=== PATIENT | male | born 1980 | race Caucasian/White ===

== ENCOUNTER 2016-12-26 21:49 | Emergency (ER) | payer OTHER ==
[2016-12-26] MEDS ORDERED: Lidocaine 1% with EPINEPHrine 1:100,000 20 ML MDV INJECT ONE (21:54)
[2016-12-26] MEDS ORDERED: Bacitracin Oint 1 GM U/D Packet TOP ONE (22:16)
[2016-12-26] MEDS ORDERED: Diphtheria,Pertussis(Acell),Tetanus Vaccine 0.5 ML Syringe IM ONE (22:16)
--- NOTE | 2016-12-26 22:20 | EDM.PDOC ---
ED HPI GENERAL MEDICAL PROBLEM - General Chief Complaint: Laceration Stated Complaint: LACERATION ABOVE LT EYE Time Seen by Provider: 12/26/16 22:07 - History of Present Illness INITIAL COMMENTS - FREE TEXT/NARRATIVE: HISTORY AND PHYSICAL: History of present illness: Patient 36-year-old male presents with a laceration to his left face that occurred when he turned into a cabinet Review of systems: As per history of present illness and below otherwise all systems reviewed and negative. Past medical history: As per history of present illness and as reviewed below otherwise noncontributory. Surgical history: As per history of present illness and as reviewed below otherwise noncontributory. Social history: No reported history of drug or alcohol abuse. Family history: As per history of present illness and as reviewed below otherwise noncontributory. Physical exam: HEENT: Patient has approximately 2 cm moderate depth laceration above his left eyebrow, normocephalic, pupils reactive, negative for conjunctival pallor or scleral icterus, mucous membranes moist, throat clear, neck supple, nontender, trachea midline. Lungs: Clear to auscultation, breath sounds equal bilaterally, chest nontender. Heart: S1S2, regular, negative for clicks, rubs, or JVD. Abdomen: Soft, nondistended, nontender. Negative for masses or hepatosplenomegaly. Negative for costovertebral tenderness. Pelvis: Stable nontender. Genitourinary: Deferred. Rectal: Deferred. Extremities: Atraumatic, negative for cords or calf pain. Neurovascular unremarkable. Neuro: Awake, alert, oriented. Cranial nerves II through XII unremarkable. Cerebellum unremarkable. Motor and sensory unremarkable throughout. Exam nonfocal. Diagnostics: None Therapeutics: 0.5 DT patient was prepped and draped in sterile manner a size 1% lidocaine without epinephrine closed with 5-0 absorbable suture Impression: #1 left facial laceration Definitive disposition and diagnosis as appropriate pending reevaluation and review of above. left eyebrow Pain Score (Numeric/FACES): 8 - Related Data Allergies Allergy/AdvReac Type Severity Reaction Status Date / Time No Known Allergies Allergy Verified 12/26/16 22:00 Past Medical History Cardiovascular History: Reports: None Respiratory History: Reports: None Gastrointestinal History: Reports: None Genitourinary History: Reports: None Musculoskeletal History: Reports: Other (See Below) Other Musculoskeletal History: neck pain Neurological History: Reports: None Psychiatric History: Reports: None Endocrine/Metabolic History: Reports: None Hematologic History: Reports: None Immunologic History: Reports: None Oncologic (Cancer) History: Reports: None Dermatologic History: Reports: None - Infectious Disease History Infectious Disease History: Reports: None - Past Surgical History Musculoskeletal Surgical History: Reports: None Social & Family History - Family History Family Medical History: Noncontributory - Tobacco Use Smoking Status *Q: Current Every Day Smoker Years of Tobacco use: 15 Packs/Tins Daily: 0.5 - Caffeine Use Caffeine Use: Reports: Energy Drinks - Recreational Drug Use Recreational Drug Use: No ED ROS GENERAL - Review of Systems Review Of Systems: ROS reveals no pertinent complaints other than HPI. ED EXAM, SKIN/RASH Exam: See Below (See dictation) Course - Vital Signs Last Recorded V/S: Last Vital Signs Temp 36.2 C 12/26/16 22:01 Pulse 81 12/26/16 22:01 Resp 18 12/26/16 22:01 BP 156/103 H 12/26/16 22:01 Pulse Ox 98 12/26/16 22:01 - Orders/Labs/Meds Orders: Active Orders 24 hr Category Date Time Status Vaccines to be Administered [RC] PER UNIT ROUTINE Care 12/26/16 22:16 Active Bacitracin [Bacitracin Oint 1 GM] Med 12/26/16 22:16 Once 1 dose TOP ONETIME ONE Diphth,Pertuss(Acell),Tet Vac [Adacel] Med 12/26/16 22:16 Once 0.5 ml IM .ONCE ONE Medication Orders Bacitracin (Bacitracin Oint 1 Gm) 1 dose TOP ONETIME ONE Stop: 12/26/16 22:17 Diphtheria/Tetanus/Acell Pertussis (Adacel) 0.5 ml IM .ONCE ONE Stop: 12/26/16 22:17 Meds: Medications Generic Name Dose Route Start Last Admin Trade Name Freq PRN Reason Stop Dose Admin Bacitracin 1 dose 12/26/16 22:16 Bacitracin Oint 1 Gm TOP 12/26/16 22:17 ONETIME ONE Diphtheria/Tetanus/Acell Pertussis 0.5 ml 12/26/16 22:16 Adacel IM 12/26/16 22:17 .ONCE ONE Discontinued Medications Generic Name Dose Route Start Last Admin Trade Name Freq PRN Reason Stop Dose Admin Lidocaine/Epinephrine 20 ml 12/26/16 21:54 12/26/16 22:02 Xylocaine 1% With Epinephrine 1:100,000 INJECT 12/26/16 21:55 20 ml ONETIME ONE Administration Departure - Departure Time of Disposition: 22:19 Disposition: Home, Self-Care 01 Condition: Good Clinical Impression: Facial laceration - Discharge Information Referrals: PCP,None [Primary Care Provider] - Additional Instructions: The following information is given to patients seen in the emergency department who are being discharged to home. This information is to outline your options for follow-up care. We provide all patients seen in our emergency department with a follow-up referral. The need for follow-up, as well as the timing and circumstances, are variable depending upon the specifics of your emergency department visit. If you don't have a primary care physician on staff, we will provide you with a referral. We always advise you to contact your personal physician following an emergency department visit to inform them of the circumstance of the visit and for follow-up with them and/or the need for any referrals to a consulting specialist. The emergency department will also refer you to a specialist when appropriate. This referral assures that you have the opportunity for followup care with a specialist. All of these measure are taken in an effort to provide you with optimal care, which includes your followup. Under all circumstances we always encourage you to contact your private physician who remains a resource for coordinating your care. When calling for followup care, please make the office aware that this follow-up is from your recent emergency room visit. If for any reason you are refused follow-up, please contact the [facility] emergency department at and asked to speak to the emergency department charge nurse. Follow-up primary medical doctor 1-2 days return as needed as discussed - My Orders Last 24 Hours: My Active Orders 12/26/16 22:16 Vaccines to be Administered [RC] PER UNIT ROUTINE Bacitracin [Bacitracin Oint 1 GM] 1 dose TOP ONETIME ONE Diphth,Pertuss(Acell),Tet Vac [Adacel] 0.5 ml IM .ONCE ONE - Assessment/Plan Last 24 Hours: My Active Orders 12/26/16 22:16 Vaccines to be Administered [RC] PER UNIT ROUTINE Bacitracin [Bacitracin Oint 1 GM] 1 dose TOP ONETIME ONE Diphth,Pertuss(Acell),Tet Vac [Adacel] 0.5 ml IM .ONCE ONE
== END 2016-12-26 22:25 | disposition home or self-care (01) ==
LOC: MW.ED 21:49
DX: S01.81XA Laceration without foreign body of other part of head, initial encounter (principal); F17.210 Nicotine dependence, cigarettes, uncomplicated; W22.8XXA Striking against or struck by other objects, initial encounter
CPT/HCPCS: 12011; 90471; 90715; 99282-25; 99283

== ENCOUNTER 2017-05-23 20:18 | Emergency (ER) | payer OTHER ==
[2017-05-23] MEDS ORDERED: Sodium Chloride 0.9% 1,000 ML IV ONE (21:07)
[2017-05-23] MEDS ORDERED: Metoclopramide 10 MG/2 ML SDV IV ONE (21:07)
[2017-05-23] MEDS ORDERED: Ketorolac 30 MG/ML SDV IVPUSH ONE (21:07)
[2017-05-23] MEDS ORDERED: Ondansetron 4 MG/2 ML SDV IVPUSH ONE (21:07)
[2017-05-23] MEDS ORDERED: diphenhydrAMINE 50 MG/ML SDV IVPUSH ONE (21:07)
--- NOTE | 2017-05-23 21:10 | EDM.PDOC ---
<Jamie Rodriguez E - Last Filed: 05/23/17 22:54> ED HPI GENERAL MEDICAL PROBLEM - General Chief Complaint: General Stated Complaint: NAUSEA TOOTH PAIN Time Seen by Provider: 05/23/17 21:01 Source of Information: Reports: Patient History Limitations: Reports: No Limitations - History of Present Illness INITIAL COMMENTS - FREE TEXT/NARRATIVE: HISTORY AND PHYSICAL: History of present illness: Patient is a 37-year-old male who presents to the emergency room with multiple complaints. He states he has had right upper dental pain 3 months. Today he started to have a migraine headache (starting around 5pm) with light/noise sensitivity and nausea. States when he moves around he feels lightheaded and dizzy. Believes he may have had some fevers, although did not check his temperature. He denies any chest pain, shortness of breath, abdominal pain, vomiting, diarrhea or constipation. He denies any recent head injury or trauma. Review of systems: As per history of present illness and below otherwise all systems reviewed and negative. Past medical history: As per history of present illness and as reviewed below otherwise noncontributory. Surgical history: As per history of present illness and as reviewed below otherwise noncontributory. Social history: No reported history of drug or alcohol abuse. Family history: As per history of present illness and as reviewed below otherwise noncontributory. Physical exam: Gen.: Well-developed and well-nourished 37-year-old male. Alert and oriented. Nontoxic appearing and in no acute distress. HEENT: Atraumatic, normocephalic, pupils reactive, negative for conjunctival pallor or scleral icterus, mucous membranes moist, throat clear, neck supple, nontender, trachea midline. Mild erythema noted to the right upper dental posterior molar area. Minimal tenderness to Tenderness to palpation of the gumline. No drooling or trismus. No meningeal sign. Lungs: Clear to auscultation, breath sounds equal bilaterally, chest nontender. Heart: S1S2, regular rate and rhythm without overt murmur Abdomen: Soft, nondistended, nontender. Negative for masses or hepatosplenomegaly. Negative for costovertebral tenderness. Pelvis: Stable nontender. Genitourinary: Deferred. Rectal: Deferred. Extremities: Atraumatic, negative for cords or calf pain. Neurovascular unremarkable. Neuro: Awake, alert, oriented. Cranial nerves II through XII unremarkable. Cerebellum unremarkable. Motor and sensory unremarkable throughout. Exam nonfocal. Due to patient's multiple complaints I will do a CBC and CMP and give the patient some IV fluids with medication for his migraine. WBC is 18, Rocephin given while here in the ED. CT head being done to assess for mastoiditis. Will treat the dental complaint/sinus headache with Augmentin. Zofran as needed for nausea. Patient requesting something for pain, Tramadol for pain managment. Diagnostics: CBC, CMP, CT head Therapeutics: IV fluid, Zofran, Toradol, Reglan, Benadryl, Rocephin Impression: Sinusitis Dental Decay Plan: 1. Take your medications as directed. 2. Follow-up with your primary caregiver in the next 1-2 days. Return to the ED as needed and as discussed. Definitive disposition and diagnosis as appropriate pending reevaluation and review of above. Duration: Week(s): Location: Reports: Head left side face Pain Score (Numeric/FACES): 10 - Related Data Allergies Allergy/AdvReac Type Severity Reaction Status Date / Time No Known Allergies Allergy Verified 05/23/17 20:49 Home Meds: Home Meds PARoxetine [Paxil] 20 mg PO DAILY 05/23/17 [History] Past Medical History HEENT History: Reports: None Cardiovascular History: Reports: None Respiratory History: Reports: None Gastrointestinal History: Reports: None Genitourinary History: Reports: None Musculoskeletal History: Reports: Other (See Below) Other Musculoskeletal History: neck pain, previous neck surgery Neurological History: Reports: None Psychiatric History: Reports: None Endocrine/Metabolic History: Reports: None Hematologic History: Reports: None Immunologic History: Reports: None Oncologic (Cancer) History: Reports: None Dermatologic History: Reports: None - Infectious Disease History Infectious Disease History: Reports: Chicken Pox - Past Surgical History Musculoskeletal Surgical History: Reports: None Social & Family History - Family History Family Medical History: Noncontributory - Tobacco Use Smoking Status *Q: Current Every Day Smoker Years of Tobacco use: 18 Packs/Tins Daily: 1 - Caffeine Use Caffeine Use: Reports: Energy Drinks - Recreational Drug Use Recreational Drug Use: No ED ROS GENERAL - Review of Systems Review Of Systems: ROS reveals no pertinent complaints other than HPI. ED EXAM, GENERAL - Physical Exam Exam: See Below (see Dictation) Course - Vital Signs Last Recorded V/S: Last Vital Signs Temp 99.5 F 05/23/17 20:50 Pulse 98 05/23/17 20:50 Resp 18 05/23/17 20:50 BP 127/71 05/23/17 20:50 Pulse Ox 99 05/23/17 20:50 Orthostatic Blood Pressure [ 129/72 Standing] Orthostatic Blood Pressure [ 130/67 Sitting] Orthostatic Blood Pressure [ 134/68 Supine] - Orders/Labs/Meds Orders: Active Orders 24 hr Category Date Time Status Orthostatic Vital Signs [RC] ASDIRECTED Care 05/23/17 22:18 Active Head wo Cont [CT] Stat Exams 05/23/17 22:41 Taken Labs: Laboratory Tests 05/23/17 05/23/17 Range/Units 21:35 21:35 WBC 18.17 H (4.0-11.0) K/uL RBC 5.03 (4.50-5.90) M/uL Hgb 17.1 H (13.0-17.0) g/dL Hct 47.8 (38.0-50.0) % MCV 95.0 (80.0-98.0) fL MCH 34.0 H (27.0-32.0) pg MCHC 35.8 (31.0-37.0) g/dL RDW Std Deviation 45.7 (28.0-62.0) fl RDW Coeff of Laura 13 (11.0-15.0) % Plt Count 261 (150-400) K/uL MPV 11.20 (7.40-12.00) fL Neut % (Auto) 87.9 H (48.0-80.0) % Lymph % (Auto) 5.6 L (16.0-40.0) % Bullitt % (Auto) 5.8 (0.0-15.0) % Eos % (Auto) 0.6 (0.0-7.0) % Baso % (Auto) 0.1 (0.0-1.5) % Neut # (Auto) 16.0 H (1.4-5.7) K/uL Lymph # (Auto) 1.0 (0.6-2.4) K/uL Bullitt # (Auto) 1.1 H (0.0-0.8) K/uL Eos # (Auto) 0.1 (0.0-0.7) K/uL Baso # (Auto) 0.0 (0.0-0.1) K/uL Nucleated RBC % 0.0 /100WBC Nucleated RBCs # 0 K/uL Sodium 138 (136-148) mmol/L Potassium 3.8 (3.5-5.1) mmol/L Chloride 102 (98-107) mmol/L Carbon Dioxide 23.5 (21.0-32.0) mmol/L BUN 11 (7.0-18.0) mg/dL Creatinine 1.1 (0.8-1.3) mg/dL Est Cr Clr Drug Dosing 112.88 mL/min Estimated GFR (MDRD) > 60.0 ml/min Glucose 107 H (74-106) mg/dL Calcium 8.9 (8.5-10.1) mg/dL Total Bilirubin 0.7 (0.2-1.0) mg/dL AST 16 (15-37) IU/L ALT 31 (14-63) IU/L Alkaline Phosphatase 70 (46-116) U/L Total Protein 7.1 (6.4-8.2) g/dL Albumin 4.2 (3.4-5.0) g/dL Globulin 2.9 (2.0-3.5) g/dL Albumin/Globulin Ratio 1.4 (1.3-2.8) Meds: Medications Discontinued Medications Generic Name Dose Route Start Last Admin Trade Name Freq PRN Reason Stop Dose Admin Diphenhydramine HCl 50 mg 05/23/17 21:07 05/23/17 21:42 Benadryl IVPUSH 05/23/17 21:08 50 mg ONETIME ONE Administration Sodium Chloride 1,000 mls @ 999 mls/hr 05/23/17 21:07 05/23/17 21:35 Normal Saline IV 05/23/17 22:07 999 mls/hr STAT ONE Administration Ceftriaxone Sodium/Dextrose 1 50 mls @ 100 mls/hr 05/23/17 22:14 05/23/17 22: 28 gm/ Premix IV 05/23/17 22:43 100 mls/hr ONETIME ONE Administration Ketorolac Tromethamine 30 mg 05/23/17 21:07 05/23/17 21:40 Toradol IVPUSH 05/23/17 21:08 30 mg ONETIME ONE Administration Metoclopramide HCl 10 mg 05/23/17 21:07 05/23/17 21:37 Reglan IV 05/23/17 21:08 10 mg ONETIME ONE Administration Ondansetron HCl 4 mg 05/23/17 21:07 05/23/17 21:35 Zofran IVPUSH 05/23/17 21:08 4 mg ONETIME ONE Administration Departure - Departure Disposition: Home, Self-Care 01 Clinical Impression: Dental decay Sinusitis Qualifiers: Sinusitis location: maxillary Chronicity: acute Recurrence: non-recurrent Qualified Code(s): J01.00 - Acute maxillary sinusitis, unspecified - Discharge Information Instructions: Sinusitis, Adult, [id number], Sinus Headache, [id number] Referrals: Caitlin Ewing, [employer] [Primary Care Provider] - Forms: ED Department Discharge Additional Instructions: My general discharge The following information is given to patients seen in the emergency department who are being discharged to home. This information is to outline your options for follow-up care. We provide all patients seen in our emergency department with a follow-up referral. The need for follow-up, as well as the timing and circumstances, are variable depending upon the specifics of your emergency department visit. If you don't have a primary care physician on staff, we will provide you with a referral. We always advise you to contact your personal physician following an emergency department visit to inform them of the circumstance of the visit and for follow-up with them and/or the need for any referrals to a consulting specialist. The emergency department will also refer you to a specialist when appropriate. This referral assures that you have the opportunity for follow-up care with a specialist. All of these measure are taken in an effort to provide you with optimal care, which includes your follow-up. Under all circumstances we always encourage you to contact your private physician who remains a resource for coordinating your care. When calling for follow-up care, please make the office aware that this follow-up is from your recent emergency room visit. If for any reason you are refused follow-up, please contact the [facility] Emergency Department at and asked to speak to the emergency department charge nurse. GUERA [facility] [address] [place] [id number] 1. Take your medications as directed. 2. Follow-up with your primary caregiver in the next 1-2 days. Return to the ED as needed and as discussed. <Nahun Hester - Last Filed: 05/24/17 00:32> ED HPI GENERAL MEDICAL PROBLEM - History of Present Illness INITIAL COMMENTS - FREE TEXT/NARRATIVE: This is Dr. Hester. I was informed of the patient's clinical status and all lab findings. I examined the patient and agree with above. Did take over the patient at approximately 2300. CT the head showed no acute intercranial processes. 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 No findings suggestive of mastoiditis. I informed patient of findings and patient was discharged in good condition with a prescription for Augmentin 875, tramadol 50 mg #12, and Zofran. He was instructed to follow-up with his primary care provider as well as return to the emergency department if he had any new or worsening symptoms. ED ROS GENERAL - Review of Systems Review Of Systems: See Below ED EXAM, GENERAL - Physical Exam Exam: See Below Departure - Departure Time of Disposition: 00:32
[2017-05-23] MEDS ORDERED: cefTRIAXone 1 GM in Premix Bag 1 BAG IV ONE (22:14)
[2017-05-23 22:20] LABS: CHLORIDE,CL 102 mmol/L (98-107); SODIUM,NA 138 mmol/L (136-148)
--- NOTE | 2017-05-24 10:55 | CT ---
EXAM DATE: 05/23/17 PATIENT'S AGE: 37 Patient: CARLOS ENRIQUE HUTCHISON Facility: [place], [place] Site . Site : [id number] Study: CT Head [id number]/[id number] 11:32:04 PM Ordering Physician: Doctor Ontiveros Final Report: INDICATION: N/V, fever, dizziness, weakness TECHNIQUE: CT Head without contrast. COMPARISON: None. FINDINGS: There is no sign of intracranial hemorrhage or mass effect. The richter-white differentiation is preserved. 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 No acute disease of the visualized paranasal sinuses and mastoid air cells. No fracture evident. No scalp hematoma/laceration. IMPRESSION: No acute intracranial process. 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 Dictated by: Galen Cano MD @ 05/24/2017 00:17:50 (Electronic Signature) Report Signed by Proxy. [facility]
== END 2017-05-24 00:30 | disposition home or self-care (01) ==
LOC: MW.ED 20:18
DX: K02.9 Dental caries, unspecified (principal); J01.00 Acute maxillary sinusitis, unspecified; F17.210 Nicotine dependence, cigarettes, uncomplicated; Z79.899 Other long term (current) drug therapy
CPT/HCPCS: 36415; 70450; 80053; 85025; 96361; 96365; 96375; 99284; J0696; J1200; J1885; J2405; J2765; J7040; 99283

== ENCOUNTER 2021-09-25 08:39 | Emergency (ER) | payer OTHER | END 2021-09-25 10:05 | disposition home or self-care (01) | LOC: MW.ED 08:39 | DX: S89.91XA Unspecified injury of right lower leg, initial encounter (principal); W22.09XA Striking against other stationary object, initial encounter | CPT/HCPCS: 73562-26-RT; 73562-RT; 99282; 99283 ==

== ENCOUNTER 2022-05-03 09:57 | Inpatient (IN) | payer OTHER, BC ==
[2022-05-03] MEDS ORDERED: Sodium Chloride 0.9% 2.5 ML Syringe FLUSH PRN (10:28)
[2022-05-03] MEDS ORDERED: Sodium Chloride 0.9% 10 ML Syringe FLUSH PRN (10:28)
[2022-05-03] MEDS ORDERED: Sodium Chloride 0.9% 1,000 ML IV ONE (10:29)
[2022-05-03 11:16] LABS: POTASSIUM,K 3.8 mmol/L (3.5-5.1)
[2022-05-03 11:21] LABS: CORONAVIRUS COVID-19 NAA NEGATIVE (NEGATIVE); INFLUENZA A NAA NEGATIVE (NEGATIVE); INFLUENZA B NAA NEGATIVE (NEGATIVE); RESPIRATORY SYNCYTIAL VIR NAA NEGATIVE (NEGATIVE)
[2022-05-03] MEDS ORDERED: Iopamidol 755 MG/ML 500 ML Multipack Bottle IVPUSH ONE (12:13)
[2022-05-03] MEDS ORDERED: Sodium Chloride 0.9% 2,000 ML IV ONE (12:47)
[2022-05-03] MEDS: cefTRIAXone 2 GM in Premix Bag 1 BAG IV SCH (17:05)
[2022-05-04] MEDS: oxyCODONE 5 MG Tab PO PRN ×4 (00:17→21:33)
[2022-05-04] MEDS: Folic Acid 1 MG Tab PO SCH ×2 (00:17→21:33)
[2022-05-04] MEDS: Thiamine 200 MG/2 ML MDV IVPUSH SCH ×2 (00:17→08:06)
[2022-05-04 06:25] LABS: CARBON DIOXIDE,CO2 25.3 mmol/L (21.0-32.0); POTASSIUM,K 3.8 mmol/L (3.5-5.1)
[2022-05-04] MEDS: LORazepam 2 MG/ML SDV IVPUSH PRN ×3 (08:07→21:43)
[2022-05-04] MEDS ORDERED: Gadobenate Dimeglumine 529 MG/ML 20 ML SDV IVPUSH STA (09:01)
[2022-05-04] MEDS: Furosemide 40 MG Tab PO SCH (10:30)
[2022-05-04] MEDS: Spironolactone 25 MG Tab PO SCH (10:30)
[2022-05-04] MEDS ORDERED: cefTRIAXone 2 GM in Sodium Chloride 0.9% 50 ML IV SCH (15:00)
[2022-05-04] MEDS: cefTRIAXone 2 GM in Premix Bag 1 BAG IV SCH (16:31)
[2022-05-05] MEDS: oxyCODONE 5 MG Tab PO PRN (04:25)
[2022-05-05 06:46] LABS: CARBON DIOXIDE,CO2 24.3 mmol/L (21.0-32.0); POTASSIUM,K 4.6 mmol/L (3.5-5.1)
[2022-05-05] MEDS: Spironolactone 25 MG Tab PO SCH (09:21)
[2022-05-05] MEDS: Furosemide 40 MG Tab PO SCH (09:21)
[2022-05-05] MEDS: Thiamine 200 MG/2 ML MDV IVPUSH SCH (09:21)
== END 2022-05-05 12:05 | disposition home or self-care (01) | DRG 372 ==
LOC: MW.ED 09:57 → MW.MS 17:06
PROVIDERS: ADMIT Internal Medicine; ATTEND Internal Medicine
PROC: 0W9G3ZX Drainage of Peritoneal Cavity, Percutaneous Approach, Diagnostic (ICD-10-PCS; principal; 2022-05-03)
DX: K65.2 Spontaneous bacterial peritonitis (principal); F10.288 Alcohol dependence with other alcohol-induced disorder; E86.0 Dehydration; K70.31 Alcoholic cirrhosis of liver with ascites; F17.210 Nicotine dependence, cigarettes, uncomplicated; F17.200 Nicotine dependence, unspecified, uncomplicated; K72.90 Hepatic failure, unspecified without coma; Z20.822 Contact with and (suspected) exposure to COVID-19; K70.0 Alcoholic fatty liver; Z86.16 Personal history of COVID-19
CPT/HCPCS: 0241U; 36415; 71045; 74177; 74183; 80053; 83605; 83690; 84157; 85025; 85610; 87040; 87070; 87075; 87205; 89050; 96361; 96365; 99285; A9270-GY; A9577; J0696; J2060; J3411; J3490; J7030; Q9967

== ENCOUNTER 2023-03-15 09:00 | Emergency (ER) | payer OTHER, BC ==
[2023-03-15 09:48] LABS: BASOPHILS ABSOLUTE AUTO 0.09 K/uL (0.00-0.20); BASOPHILS PERCENT AUTO 0.6 % (0.0-1.0); EOSINOPHILS PERCENT AUTO 1.4 % (0.0-6.0); HEMATOCRIT 52.1 % (42.0-52.0); HEMOGLOBIN 18.6 g/dL (14.0-18.0); IMMATURE GRAN ABSOLUTE AUTO 0.06 K/uL (0.00-0.05); IMMATURE GRAN PERCENT AUTO 0.4 % (0.0-0.4); LYMPHOCYTES PERCENT AUTO 19.5 % (24.0-44.0); MEAN CORPUSCULAR HEMOGLOBIN 35.2 pg (28.0-32.0); MEAN CORPUSCULAR HGB CONC 35.7 g/dL (32.0-36.0); MEAN CORPUSCULAR VOLUME 98.7 fL (83.0-99.0); MEAN PLATELET VOLUME 10.2 fL (9.4-12.4); MONOCYTES ABSOLUTE AUTO 1.03 K/uL (0.00-0.80); MONOCYTES PERCENT AUTO 7.2 % (0.0-8.0); NEUTROPHILS ABSOLUTE AUTO 10.15 K/uL (1.80-7.70); NEUTROPHILS PERCENT AUTO 70.9 % (41.0-71.0); PLATELET COUNT,PLT 227 K/uL (150-400); RED BLOOD CELL COUNT 5.28 M/uL (4.52-5.90); WHITE BLOOD CELL COUNT,WBC 14.33 K/uL (3.9-11.3)
[2023-03-15 10:14] LABS: A/G RATIO 1.4 (0.9-1.6); ALBUMIN 4.5 g/dL (3.4-5.0); BILIRUBIN TOTAL 1.7 mg/dL (0.2-1.0); CALCIUM 9.6 mg/dL (8.5-10.1); CARBON DIOXIDE,CO2 24.9 mmol/L (21.0-32.0); CREATININE 1.2 mg/dL (0.8-1.3); EST CRCL DRUG DOSING (CG) 88.02 mL/min; POTASSIUM,K 4.4 mmol/L (3.5-5.1); PROTEIN TOTAL,TP 7.7 g/dL (6.4-8.2)
[2023-03-15] MEDS ORDERED: Iopamidol 755 MG/ML 500 ML Multipack Bottle IVPUSH STA (11:44)
== END 2023-03-15 14:40 | disposition home or self-care (01) ==
LOC: MW.ED 09:00
DX: R20.2 Paresthesia of skin (principal); M54.2 Cervicalgia; Z86.16 Personal history of COVID-19
CPT/HCPCS: 36415; 70450; 70460; 72126; 72129; 80053; 85025; 85652; 86140; 93005; 99284; Q9967

== ENCOUNTER 2023-12-12 09:41 | Emergency (ER) | payer OTHER, BC ==
[2023-12-12] MEDS: Sodium Chloride 0.9% 1,000 ML IV ONE (10:29)
[2023-12-12] MEDS: Sodium Chloride 0.9% 10 ML Syringe FLUSH PRN (10:30)
[2023-12-12] MEDS: Sodium Chloride 0.9% 2.5 ML Syringe FLUSH PRN (10:30)
[2023-12-12 10:31] LABS: BASOPHILS ABSOLUTE AUTO 0.07 K/uL (0.00-0.20); BASOPHILS PERCENT AUTO 0.6 % (0.0-1.0); EOSINOPHILS ABSOLUTE AUTO 0.09 K/uL (0.00-0.45); EOSINOPHILS PERCENT AUTO 0.8 % (0.0-6.0); HEMATOCRIT 46.4 % (42.0-52.0); HEMOGLOBIN 16.8 g/dL (14.0-18.0); IMMATURE GRAN ABSOLUTE AUTO 0.05 K/uL (0.00-0.05); IMMATURE GRAN PERCENT AUTO 0.5 % (0.0-0.4); LYMPHOCYTES ABSOLUTE AUTO 1.71 K/uL (1.00-4.80); LYMPHOCYTES PERCENT AUTO 15.8 % (24.0-44.0); MEAN CORPUSCULAR HEMOGLOBIN 37.3 pg (28.0-32.0); MEAN CORPUSCULAR HGB CONC 36.2 g/dL (32.0-36.0); MEAN CORPUSCULAR VOLUME 102.9 fL (83.0-99.0); MEAN PLATELET VOLUME 10.6 fL (9.4-12.4); MONOCYTES ABSOLUTE AUTO 0.92 K/uL (0.00-0.80); MONOCYTES PERCENT AUTO 8.5 % (0.0-8.0); NEUTROPHILS ABSOLUTE AUTO 7.97 K/uL (1.80-7.70); NEUTROPHILS PERCENT AUTO 73.8 % (41.0-71.0); PLATELET COUNT,PLT 191 K/uL (150-400); RED BLOOD CELL COUNT 4.51 M/uL (4.52-5.90); WHITE BLOOD CELL COUNT,WBC 10.81 K/uL (3.9-11.3)
[2023-12-12 11:05] LABS: A/G RATIO 1.3 (0.9-1.6); ALBUMIN 3.3 g/dL (3.4-5.0); BILIRUBIN TOTAL 2.7 mg/dL (0.2-1.0); CALCIUM 8.8 mg/dL (8.5-10.1); CARBON DIOXIDE,CO2 23.7 mmol/L (21.0-32.0); CREATININE 0.8 mg/dL (0.8-1.3); EST CRCL DRUG DOSING (CG) 146.17 mL/min; POTASSIUM,K 3.6 mmol/L (3.5-5.1); PROTEIN TOTAL,TP 5.9 g/dL (6.4-8.2)
[2023-12-12 11:51] LABS: COLOR,URINE ORANGE; GLUCOSE,URINE 100 mg/dL (NEGATIVE); KETONES,URINE >=80 mg/dL (NEGATIVE); LEUKOCYTE ESTERASE,URINE TRACE (NEGATIVE); NITRITE,URINE POSITIVE (NEGATIVE); OCCULT BLOOD,URINE NEGATIVE (NEGATIVE); PH,URINE 7.5 (5.0-8.0); PROTEIN,URINE 30 mg/dL (NEGATIVE); UROBILINOGEN,URINE >=8.0 EU/dL (<2.0)
[2023-12-12 12:32] LABS: BILIRUBIN,URINE MODERATE (NEGATIVE)
[2023-12-12 12:33] LABS: APPEARANCE,URINE HAZY
[2023-12-12 12:35] LABS: EPITHELIAL CELLS,URINE OCCASIONAL (NONE-FEW); RBC,URINE 0-2 (0-2/HPF); WBC,URINE 0-4 (0-5/HPF)
[2023-12-12 12:36] LABS: BACTERIA,URINE 1+ (NEGATIVE); CALCIUM OXALATE CRYSTALS,URINE MODERATE (NEGATIVE); HYALINE CASTS,URINE 0-2 (0-2/LPF); MUCUS,URINE LIGHT (NONE-MOD)
[2023-12-12] MEDS: cefTRIAXone 1 GM in Sodium Chloride 0.9% 50 ML IV ONE (13:14)
[2023-12-12] MEDS: Alum Hydrox/Mag Hydrox/Simeth 15 ML, Metoclopramide 5 MG, Lidocaine 2% 5 ML PO ONE (13:15)
== END 2023-12-12 13:55 | disposition home or self-care (01) ==
LOC: MW.ED 09:41
DX: K29.70 Gastritis, unspecified, without bleeding (principal); N39.0 Urinary tract infection, site not specified; K76.0 Fatty (change of) liver, not elsewhere classified; R18.8 Other ascites; Z86.16 Personal history of COVID-19; Z79.899 Other long term (current) drug therapy; Z75.8 Other problems related to medical facilities and other health care
CPT/HCPCS: 36415; 76705; 80053; 81001; 83690; 85025; 87086; 96361; 96365; 99284; A9270; J0696; J3490; J7030; 99283

== ENCOUNTER 2023-12-24 08:54 | Emergency (ER) | payer OTHER, BC ==
[2023-12-24 09:38] LABS: BASOPHILS ABSOLUTE AUTO 0.06 K/uL (0.00-0.20); BASOPHILS PERCENT AUTO 0.5 % (0.0-1.0); EOSINOPHILS ABSOLUTE AUTO 0.15 K/uL (0.00-0.45); EOSINOPHILS PERCENT AUTO 1.2 % (0.0-6.0); HEMATOCRIT 46.1 % (42.0-52.0); HEMOGLOBIN 16.7 g/dL (14.0-18.0); IMMATURE GRAN ABSOLUTE AUTO 0.05 K/uL (0.00-0.05); IMMATURE GRAN PERCENT AUTO 0.4 % (0.0-0.4); LYMPHOCYTES ABSOLUTE AUTO 2.18 K/uL (1.00-4.80); LYMPHOCYTES PERCENT AUTO 17.3 % (24.0-44.0); MEAN CORPUSCULAR HGB CONC 36.2 g/dL (32.0-36.0); MEAN CORPUSCULAR VOLUME 102.2 fL (83.0-99.0); MEAN PLATELET VOLUME 10.1 fL (9.4-12.4); MONOCYTES ABSOLUTE AUTO 1.09 K/uL (0.00-0.80); MONOCYTES PERCENT AUTO 8.7 % (0.0-8.0); NEUTROPHILS ABSOLUTE AUTO 9.04 K/uL (1.80-7.70); NEUTROPHILS PERCENT AUTO 71.9 % (41.0-71.0); PLATELET COUNT,PLT 222 K/uL (150-400); RED BLOOD CELL COUNT 4.51 M/uL (4.52-5.90); WHITE BLOOD CELL COUNT,WBC 12.57 K/uL (3.9-11.3)
[2023-12-24 09:45] LABS: INR 1.54 (0.86-1.11)
[2023-12-24 10:08] LABS: ALBUMIN 3.1 g/dL (3.4-5.0); BILIRUBIN TOTAL 2.8 mg/dL (0.2-1.0); CALCIUM 8.8 mg/dL (8.5-10.1); CARBON DIOXIDE,CO2 23.3 mmol/L (21.0-32.0); CREATININE 0.9 mg/dL (0.8-1.3); EST CRCL DRUG DOSING (CG) 126.49 mL/min; POTASSIUM,K 3.6 mmol/L (3.5-5.1); PROTEIN TOTAL,TP 5.8 g/dL (6.4-8.2)
[2023-12-24 10:18] LABS: A/G RATIO 1.2 (0.9-1.6)
[2023-12-24] MEDS: Iopamidol 755 MG/ML 500 ML Multipack Bottle IVPUSH STA (10:48)
[2023-12-24 15:16] LABS: BODY FLUID TYPE PER
[2023-12-24] MEDS: Bacitracin Oint 1 GM U/D Packet TOP ONE (15:19)
[2023-12-24 16:00] LABS: ALBUMIN,BODY FLUID 1.1 g/dL; PROTEIN,BODY FLUID 1.9 g/dL
[2023-12-24 16:07] LABS: APPEARANCE,BODY FLUID CLEAR; COLOR,BODY FLUID YELLOW
[2023-12-24 16:08] LABS: MONONUCLEAR, BODY FLUID 77.8 %; POLYMORPHONUCLEAR, BODY FLUID 22.2 %; RBC,BODY FLUID < 3000 /uL; WBC BODY FLUID 221 /uL
== END 2023-12-24 17:22 | disposition home or self-care (01) ==
LOC: MW.ED 08:54
DX: R14.0 Abdominal distension (gaseous) (principal); R18.8 Other ascites; Z86.16 Personal history of COVID-19; Z75.8 Other problems related to medical facilities and other health care
CPT/HCPCS: 36415; 74177; 80053; 80143; 83690; 84157; 85025; 85610; 87070; 87075; 87205; 89050; 99284; Q9967

== ENCOUNTER 2024-02-03 08:44 | Emergency (ER) | payer OTHER, BC ==
[2024-02-03] MEDS: Furosemide 40 MG/4 ML VIAL IVPUSH ONE (09:38)
[2024-02-03 09:53] LABS: BASOPHILS ABSOLUTE AUTO 0.09 K/uL (0.00-0.20); BASOPHILS PERCENT AUTO 0.7 % (0.0-1.0); EOSINOPHILS ABSOLUTE AUTO 0.05 K/uL (0.00-0.45); EOSINOPHILS PERCENT AUTO 0.4 % (0.0-6.0); HEMATOCRIT 48.3 % (42.0-52.0); HEMOGLOBIN 17.2 g/dL (14.0-18.0); IMMATURE GRAN ABSOLUTE AUTO 0.06 K/uL (0.00-0.05); IMMATURE GRAN PERCENT AUTO 0.5 % (0.0-0.4); LYMPHOCYTES ABSOLUTE AUTO 1.96 K/uL (1.00-4.80); LYMPHOCYTES PERCENT AUTO 15.7 % (24.0-44.0); MEAN CORPUSCULAR HEMOGLOBIN 35.2 pg (28.0-32.0); MEAN CORPUSCULAR HGB CONC 35.6 g/dL (32.0-36.0); MEAN CORPUSCULAR VOLUME 98.8 fL (83.0-99.0); MONOCYTES ABSOLUTE AUTO 1.01 K/uL (0.00-0.80); MONOCYTES PERCENT AUTO 8.1 % (0.0-8.0); NEUTROPHILS ABSOLUTE AUTO 9.35 K/uL (1.80-7.70); NEUTROPHILS PERCENT AUTO 74.6 % (41.0-71.0); PLATELET COUNT,PLT 222 K/uL (150-400); RED BLOOD CELL COUNT 4.89 M/uL (4.52-5.90); WHITE BLOOD CELL COUNT,WBC 12.52 K/uL (3.9-11.3)
[2024-02-03 10:11] LABS: INR 1.47 (0.86-1.11); PTT,PARTIAL THROMBOPLSTIN TIME 28.1 SEC (23.9-30.7)
[2024-02-03 10:35] LABS: ALBUMIN 2.8 g/dL (3.4-5.0); BILIRUBIN TOTAL 3.3 mg/dL (0.2-1.0); CALCIUM 8.7 mg/dL (8.5-10.1); EST CRCL DRUG DOSING (CG) 116.94 mL/min; POTASSIUM,K 3.5 mmol/L (3.5-5.1); PROTEIN TOTAL,TP 6.1 g/dL (6.4-8.2)
[2024-02-03 10:37] LABS: A/G RATIO 0.9 (0.9-1.6)
[2024-02-03 12:57] LABS: BODY FLUID TYPE PER
[2024-02-03 12:59] LABS: BODY FLUID TYPE PER
[2024-02-03 13:21] LABS: APPEARANCE,BODY FLUID CLEAR; COLOR,BODY FLUID YELLOW; MONONUCLEAR, BODY FLUID 56.8 %; POLYMORPHONUCLEAR, BODY FLUID 43.2 %; RBC,BODY FLUID 1 /uL; WBC BODY FLUID 319 /uL
[2024-02-03 13:23] LABS: PROTEIN,BODY FLUID 1.7 g/dL
[2024-02-03 13:33] LABS: GLUCOSE,BODY FLUID 98 mg/dL
== END 2024-02-03 16:03 | disposition home or self-care (01) ==
LOC: MW.ED 08:44
DX: R18.8 Other ascites (principal); R06.02 Shortness of breath; Z79.899 Other long term (current) drug therapy
CPT/HCPCS: 36415; 49082; 71046; 80053; 82945; 84157; 85025; 85610; 85730; 87070; 87075; 87205; 89050; 93005; 96374; 99285; J1940

== ENCOUNTER 2024-06-11 00:21 | Emergency (ER) | payer OTHER, BC ==
[2024-06-11 01:16] LABS: BASOPHILS ABSOLUTE AUTO 0.07 K/uL (0.00-0.20); BASOPHILS PERCENT AUTO 0.6 % (0.0-1.0); EOSINOPHILS ABSOLUTE AUTO 0.22 K/uL (0.00-0.45); EOSINOPHILS PERCENT AUTO 1.9 % (0.0-6.0); HEMATOCRIT 43.3 % (42.0-52.0); HEMOGLOBIN 14.8 g/dL (14.0-18.0); IMMATURE GRAN ABSOLUTE AUTO 0.06 K/uL (0.00-0.05); IMMATURE GRAN PERCENT AUTO 0.5 % (0.0-0.4); LYMPHOCYTES ABSOLUTE AUTO 2.84 K/uL (1.00-4.80); LYMPHOCYTES PERCENT AUTO 25.2 % (24.0-44.0); MEAN CORPUSCULAR HEMOGLOBIN 31.4 pg (28.0-32.0); MEAN CORPUSCULAR HGB CONC 34.2 g/dL (32.0-36.0); MEAN CORPUSCULAR VOLUME 91.9 fL (83.0-99.0); MEAN PLATELET VOLUME 10.2 fL (9.4-12.4); MONOCYTES ABSOLUTE AUTO 0.72 K/uL (0.00-0.80); MONOCYTES PERCENT AUTO 6.4 % (0.0-8.0); NEUTROPHILS ABSOLUTE AUTO 7.38 K/uL (1.80-7.70); NEUTROPHILS PERCENT AUTO 65.4 % (41.0-71.0); PLATELET COUNT,PLT 207 K/uL (150-400); RED BLOOD CELL COUNT 4.71 M/uL (4.52-5.90); WHITE BLOOD CELL COUNT,WBC 11.29 K/uL (3.9-11.3)
[2024-06-11 01:41] LABS: A/G RATIO 1.5 (0.9-1.6); ALANINE AMINOTRANSFERASE,ALT 14 IU/L (14-63); ALKALINE PHOSPHATASE 76 U/L (46-116); ASPARTATE AMNIOTRANSFERASE,AST 14 IU/L (15-37); BILIRUBIN TOTAL 0.8 mg/dL (0.2-1.0); BLOOD UREA NITROGEN,BUN 11 mg/dL (7.0-18.0); CALCIUM 9.2 mg/dL (8.5-10.1); CARBON DIOXIDE,CO2 27.5 mmol/L (21.0-32.0); CHLORIDE,CL 105 mmol/L (98-107); CREATININE 0.9 mg/dL (0.8-1.3); EST CRCL DRUG DOSING (CG) 125.19 mL/min; GLUCOSE RANDOM 111 mg/dL (74-106); POTASSIUM,K 4.2 mmol/L (3.5-5.1); PROTEIN TOTAL,TP 6.7 g/dL (6.4-8.2); SODIUM,NA 141 mmol/L (136-148)
[2024-06-11 01:44] LABS: ESTIMATED GFR 108 mL/min (>60)
[2024-06-11] MEDS: Methocarbamol 750 MG Tab PO STA (02:50)
== END 2024-06-11 04:25 | disposition home or self-care (01) ==
LOC: MW.ED 00:21
DX: M54.12 Radiculopathy, cervical region (principal); F17.210 Nicotine dependence, cigarettes, uncomplicated; Z79.899 Other long term (current) drug therapy
CPT/HCPCS: 36415; 72125; 80053; 84484; 85025; 93005; 93971; 99284; A9270; 99283